=== PATIENT | male | born 1995 | race Caucasian/White ===

== ENCOUNTER 2022-05-01 03:30 | Observation (INO) ==
[2022-05-01] MEDS ORDERED: PIPERACILLIN/TAZOBACTAM 3,375 MG in SODIUM CHLORIDE 0.9% 100 ML IV STA (03:48)
[2022-05-01] MEDS ORDERED: HYDROmorphone 1 MG/1 ML SYRINGE IV STA (03:48)
[2022-05-01] MEDS ORDERED: ONDANSETRON 4 MG/2 ML VIAL IV STA (03:48)
[2022-05-01] MEDS ORDERED: SODIUM CHLORIDE 0.9% 500 ML IV STA (03:48)
[2022-05-01 04:19] LABS: Basophils % 0.5 % (0.0-0.8); Eosinophils # 0.1 10*3/uL (0.0-0.87); Eosinophils % 1.7 % (0.00-10.9); Hematocrit 42.6 VOL% (42.0-52.0); Hemoglobin 15.1 GM/DL (14.0-18.0); Immature Granulocytes % 0.6 %; Immature Granulocytes Absolute 0.05 #; Lymphocytes # 2.6 10*3/uL (1.4-4.0); Lymphocytes % 31.4 % (21.2-54.2); Mean Corpuscular HGB Conc 35.4 GM/DL (32-36); Mean Platelet Volume 10.6 FL (9.6-12.0); Monocytes # 0.9 10*3/uL (0.11-0.8); Monocytes % 10.1 % (1.7-12.7); Neutrophils % 55.7 % (38.7-73.9); Platelet Count 156 T/CUMM (130-400); Red Blood Count 4.68 MC/CUMM (3.8-5.5); Red Cell Distribution Width 12.2 % (9.3-17.3); White Blood Count 8.4 T/CUMM (4-12)
[2022-05-01 04:35] LABS: RBC,Urine 1 /HPF (0-4); Urine Appearance Clear (Clear); Urine Color Yellow (Yellow)
[2022-05-01 04:36] LABS: Bilirubin,Urine Negative (Negative); Blood, Urine Negative (Negative); Glucose,Urine (UA) 500 mg/dL (Negative); Ketones,Urine Negative (Negative); Nitrite,Urine Negative (Negative); Protein,Urine Trace mg/dL (Negative); Urine Specific Gravity 1.015 (1.001-1.035)
[2022-05-01 04:42] LABS: Alanine Aminotransferase 104 U/L (16-61); Albumin 3.3 G/DL (3.4-5.0); Alkaline Phosphatase 117 U/L (45-117); Aspartate Amino Transferase 68 U/L (0-37); Blood Urea Nitrogen 14 MG/DL (7-18); Carbon Dioxide 24 MMOL/L (21-32); Chloride 102 MMOL/L (98-107); Glucose 340 MG/DL (74-106); Osmolality,Calculated 283.1 MOS/KG (273-304); Potassium 3.9 MMOL/L (3.5-5.1); Sodium 135 MMOL/L (136-145); Total Protein 6.9 G/DL (6.4-8.2)
[2022-05-01] MEDS ORDERED: INSULIN REGULAR 100 UNIT/ML SUBCUT STA (04:44)
[2022-05-01] MEDS ORDERED: SODIUM CHLORIDE 0.9% 1,000 ML IV STA (05:18)
[2022-05-01] MEDS ORDERED: ACETAMINOPHEN 325 MG TABLET PO PRN (05:58)
[2022-05-01] MEDS ORDERED: ONDANSETRON 4 MG/2 ML VIAL IV PRN (05:58)
[2022-05-01] MEDS ORDERED: GLUCAGON 1 MG VIAL IM PRN (05:58)
[2022-05-01] MEDS ORDERED: DEXTROSE 10% 250 ML BAG IV PRN (05:58)
[2022-05-01] MEDS ORDERED: hydrALAZINE 20 MG/1 ML VIAL IV PRN (05:58)
[2022-05-01] MEDS ORDERED: NICOTINE 21 MG/24 HR PATCH TRANSDERM PRN (05:58)
[2022-05-01] MEDS ORDERED: MORPHINE 2 MG/1 ML SYRINGE IV PRN (05:58)
[2022-05-01] MEDS: SODIUM CHLORIDE 0.9% 1,000 ML IV SCH ×2 (07:10→16:38)
[2022-05-01] MEDS: VANCOMYCIN INJ 1,750 MG in SODIUM CHLORIDE 0.9% 500 ML IV SCH ×2 (07:43→21:06)
[2022-05-01] MEDS: INSULIN LISPRO 100 UNIT/ML SUBCUT SCH ×4 (07:50→21:05)
[2022-05-01 09:20] LABS: Hepatitis B Core IgM Quant 0.14 Index; Hepatitis B Surface Ag Quant 0.13 Index; Hepatitis B Surface Ag Result Non-Reactive (NonReactive); Hepatitis C Virus Ab Quant 0.17 Index; Hepatitis C Virus Ab Result Non-Reactive (NonReactive)
[2022-05-01] MEDS: PANTOPRAZOLE 40 MG TABLET PO SCH (10:15)
[2022-05-01] MEDS: PIPERACILLIN/TAZOBACTAM 3,375 MG in SODIUM CHLORIDE 0.9% 100 ML IV SCH ×2 (12:54→22:37)
[2022-05-01] MEDS: metFORMIN 500 MG TABLET PO SCH (16:37)
[2022-05-01] MEDS ORDERED: ATORVASTATIN 40 MG TABLET PO SCH (21:00)
[2022-05-02] MEDS: SODIUM CHLORIDE 0.9% 1,000 ML IV SCH (03:31)
[2022-05-02] MEDS: PIPERACILLIN/TAZOBACTAM 3,375 MG in SODIUM CHLORIDE 0.9% 100 ML IV SCH (04:50)
[2022-05-02 06:32] LABS: Risk Ratio 4.15; VLDL Cholesterol 86.2 MG/DL
[2022-05-02] MEDS: metFORMIN 500 MG TABLET PO SCH (08:33)
[2022-05-02] MEDS: PANTOPRAZOLE 40 MG TABLET PO SCH (08:33)
[2022-05-02] MEDS: VANCOMYCIN INJ 1,750 MG in SODIUM CHLORIDE 0.9% 500 ML IV SCH (08:33)
[2022-05-02] MEDS: INSULIN LISPRO 100 UNIT/ML SUBCUT SCH (08:33)
[2022-05-02 09:11] VITALS: BP 133/72
== END 2022-05-02 11:01 | disposition home or self-care (01) ==
LOC: SUATTDRO → N.ED 03:30 → N.EDINP 03:30 → N.5E 13:55
PROVIDERS: ADMIT Internal Medicine; ATTEND Internal Medicine